=== PATIENT | female | born 1945 | race Hispanic/Latino ===

== ENCOUNTER → 2017-10-31 | Outpatient (CLI) | payer OTHER ==
[~2017-10-31] MED LIST: CEFTIN250 MG/5 M PO; CLOPIDOGREL75 MG PO; CRESTOR10 MG PO; FAMOTIDINE20 MG PO; GABAPENTIN300 MG PO; HYDROCODONE 5 MG; LEVOTHYROXINE50 MCG PO; LOSARTAN POTASS25 MG PO; ULTRAM50 MG PO; VITAMIN D32000 UNIT PO; ZOFRAN ODT4 MG PO
--- NOTE | 2017-10-31 12:22 | Diagnostic Imaging Report ---
EXAM: Renal Ultrasound INDICATION: \S\HYDRONEPHROSIS COMPARISON: None TECHNIQUE: Transverse and longitudinal images of the kidneys and bladder were obtained. FINDINGS: Right Kidney: Size: 8.3 cm Echogenicity: Normal Parenchymal thickness: Normal Collecting system: No hydronephrosis Stones: None Cyst/Mass: None Left Kidney: Size: 9.3 cm Echogenicity: Normal Parenchymal thickness: Normal Collecting system: No hydronephrosis Stones: None Cyst/Mass: None Bladder: Unremarkable. Bilateral ureteral jets were seen. IMPRESSION: Normal renal ultrasound exam. No hydronephrosis. Signed by: Dr. Robbie Maxwell MD on 10/31/2017 12:19 PM
== END ==
LOC: US 10:39
PROVIDERS: ATTEND Urology
DX: N13.30 Unspecified hydronephrosis (principal); N39.0 Urinary tract infection, site not specified
CPT/HCPCS: 76770

== ENCOUNTER → 2018-08-21 | Outpatient (CLI) | payer OTHER ==
--- NOTE | 2018-08-23 12:04 | Diagnostic Imaging Report ---
Renal Scan with Lasix [place] Clinical information: Chronic kidney disease; intermittent left flank and back pain x1 month. 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 Technique: Following intravenous administration of 10 mCi of Tc-99m MAG3, dynamic images of the kidneys in the posterior projection were obtained through 29 minutes. Lasix 40 mg was administered intravenously at 11 minutes post injection of the tracer. Report: Left kidney: Perfusion of the left kidney is prompt. The kidney has a normal reniform shape although the kidney is slightly small. Extraction of tracer from the blood pool is decreased. Clearance of tracer from the renal parenchyma begins promptly but is not complete by the end of the study. The pelvicalyceal system is not dilated. Physiologic pooling of tracer is seen within the pelvicalyceal system. Drainage of tracer from the pelvicalyceal system is prompt adequate prior to administration of Lasix. No significant stasis of tracer is seen within the left ureter. Right kidney: Perfusion of the right kidney is prompt. The kidney has a normal reniform shape although the kidney is slightly small. Extraction of tracer from the blood pool is decreased. Clearance of tracer from the renal parenchyma begins promptly but is not complete by the end of the study. The pelvicalyceal system is not dilated. Physiologic pooling of tracer is seen within the pelvicalyceal system. Drainage of tracer from the pelvicalyceal system is prompt adequate prior to administration of Lasix. No significant stasis of tracer is seen within the left ureter. Differential renal function: The left kidney contributes 50% of total renal function and the right kidney contributes 50% (normal 43-57%). Impression: 1. Evidence of medical renal disease in the left kidney. No hydronephrosis is present. No physiologically significant obstruction of the renal collecting system is present. 2. Evidence of medical renal disease in the right kidney. No hydronephrosis is present. No physiologically significant obstruction of the renal collecting system is present. 3. The differential renal function is preserved. Signed by: Dr. Kary Ashraf M.D. on 08/23/2018 12:01 PM
== END ==
LOC: NM 10:37
PROVIDERS: ATTEND Urology
DX: N18.9 Chronic kidney disease, unspecified (principal)
CPT/HCPCS: 78708; A9562

== ENCOUNTER → 2020-10-06 | Outpatient (CLI) | payer OTHER | END | disposition home or self-care (01) | LOC: CT 13:29 | PROVIDERS: ATTEND Urology | DX: N13.1 Hydronephrosis with ureteral stricture, not elsewhere classified (principal); N35.92 Unspecified urethral stricture, female | CPT/HCPCS: 74176 ==

== ENCOUNTER → 2020-11-27 | Outpatient (CLI) | payer OTHER ==
[~2020-11-27] MED LIST changes: +FUROSEMIDE INJ 10 MG/ML 4 ML VIAL ONE
== END ==
LOC: NM 07:10
PROVIDERS: ATTEND Urology
DX: N13.30 Unspecified hydronephrosis (principal)
CPT/HCPCS: 78708; A9562; J1940